=== PATIENT | female | born 1985 | race Caucasian/White ===

== ENCOUNTER 2020-07-17 08:26 | Inpatient (IN) | payer SELFPAY ==
[~2020-07-17] VITALS: Ht 162.6 cm; Wt 67.6 kg
[2020-07-17] MEDS ORDERED: AZITHROMYCIN 500MG/NS 250 ML 250 ML IV ONE (08:34)
[2020-07-17] MEDS ORDERED: CEFTRIAXONE SOD 1 GM/NS 50 ML 50 ML IV ONE (08:45)
[2020-07-17] MEDS ORDERED: ONDANSETRON HCL INJ 2MG/ML 2ML 2 MG/ML VIAL IV ONE (08:51)
[2020-07-17 08:55] LABS: BASOPHILS % 0.3 % (0.0-1.0); EOSINOPHILS % 0.5 % (0.0-6.0); HEMATOCRIT 41.7 % (34.2-44.1); LYMPHOCYTES # (AUTO) 1.6 (1.0-3.2); LYMPHOCYTES % 42.7 % (18.0-39.1); MEAN CORPUSCULAR HEMOGLOBIN 28.5 pg (28-32); MEAN CORPUSCULAR HGB CONC 33.6 g/dL (31-35); MEAN CORPUSCULAR VOLUME 84.8 fL (81-99); MONOCYTES # (AUTO) 0.4 (0.2-0.8); NEUTROPHILS # (AUTO) 1.8 (2.1-6.9); NEUTROPHILS % 46.2 % (38.7-80.0); PLATELET COUNT 202 x10e3/uL (140-360); RED BLOOD COUNT 4.92 x10e6/uL (3.6-5.1); RED CELL DISTRIBUTION WIDTH 12.8 % (11.7-14.4)
[2020-07-17] MEDS ORDERED: REMDESIVIR 100MG/NS 100ML 100 MG in SODIUM CHLORIDE 0.9% 100 ML 100 ML IV SCH (09:00)
--- NOTE | 2020-07-17 09:05 | Emergency Department Note ---
History of Present Illnes History of Present Illness Chief Complaint: COVID PUI History of Present Illness This is a 34 year old female arrived to the ED with complaints of cough, tested + for COVID. 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 Historian: Patient Arrival Mode: Car Onset (how long ago): day(s) Radiation: Reports non-radiation Severity: mild Progression: worsening Chronicity: new Context: Reports recent illness Past Medical/Family History Physician Review I have reviewed the patient's past medical and family history. Any updates have been documented here. Past Medical History Recent Fever: Yes Clinical Suspicion of Infectio: No New/Unexplained Change in Ment: No Past Medical History: None Other Surgery: breast augmentation pinning to right ankle Social History Physically hurt or threatened: No Review of Systems Review of Systems Constitutional: Reports no symptoms EENTM: Reports no symptoms Cardiovascular: Reports no symptoms Respiratory: Reports as per HPI, Reports cough Gastrointestinal: Reports no symptoms Genitourinary: Reports no symptoms Musculoskeletal: Reports no symptoms Integumentary: Reports no symptoms Neurological: Reports as per HPI Psychological: Reports no symptoms Endocrine: Reports no symptoms Hematological/Lymphatic: Reports no symptoms Physical Exam Related Data Allergies: Coded Allergies: No Known Allergies (Unverified , 07/17/20) Triage Vital Signs Vital Signs Date Time Temp Pulse Resp B/P (MAP) Pulse Ox O2 Delivery O2 Flow Rate FiO2 07/17/20 08:32 98.2 98 16 120/87 100 Room Air Vital signs reviewed: Yes Physical Exam CONSTITUTIONAL Constitutional: Present well-developed, Present well-nourished HENT HENT: Present normocephalic, Present atraumatic, Present oropharynx clear/moist, Present nose normal HENT L/R: Present left ext ear normal, Present right ext ear normal EYES Eyes: Reports PERRL, Reports conjunctivae normal NECK Neck: Present ROM normal PULMONARY Pulmonary: Present effort normal, Present breath sounds normal CARDIOVASCULAR Cardiovascular: Present regular rhythm, Present heart sounds normal, Present capillary refill normal, Present normal rate GASTROINTESTINAL Abdominal: Present soft, Present nontender, Present bowel sounds normal GENITOURINARY Genitourinary: Present exam deferred SKIN Skin: Present warm, Present dry MUSCULOSKELETAL Musculoskeletal: Present ROM normal NEUROLOGICAL Neurological: Present alert, Present oriented x 3, Present no gross motor or sensory deficits PSYCHOLOGICAL Psychological: Present mood/affect normal, Present judgement normal Results Laboratory Lab results reviewed: Yes Imaging Imaging results reviewed: Yes Assessment & Plan Medical Decision Making MDM 34-year-old female arrived to the ED with complaints of cough, chest positive for the coronavirus. Patient sent to ED for hospital admission at recommendation of infectious disease doctor. Patient started on Remdesvir, ceftriaxone and Zithromax. Assessment & Plan Final Impression: (1) COVID-19 Depart Disposition: ADMITTED Last Vital Signs Date Time Temp Pulse Resp B/P (MAP) Pulse Ox O2 Delivery O2 Flow Rate FiO2 07/17/20 08:32 98.2 98 16 120/87 100 Room Air Medications in the ED Remdesivir 100 mg/ Sodium Chloride 100 ml @ 100 mls/hr Q24H IV ; Start 07/17/20 at 09:00; Stop 08/16/20 at 08:59 Ceftriaxone Sodium 50 ml @ 100 mls/hr ONCE ONCE IV ; Start 07/17/20 at 08:45; Stop 07/17/20 at 09:14 Azithromycin 250 ml @ 200 mls/hr NOW ONCE IV ; Start 07/17/20 at 08:34; Stop 07/17/20 at 09:48 CLEM ARREDONDO, Jul 17, 2020 09:05
[2020-07-17 09:13] LABS: ALANINE AMINOTRANSFERASE 8 IU/L (0-55); ALBUMIN 4.8 g/dL (3.5-5.0); ALBUMIN/GLOBULIN RATIO 1.5 (0.8-2.0); ALKALINE PHOSPHATASE 66 IU/L (40-150); ANION GAP 16.9 mmol/L (8-16); BLOOD UREA NITROGEN 11 mg/dL (7-26); BUN/CREATININE RATIO 14 (6-25); CARBON DIOXIDE 20 mmol/L (22-29); CHLORIDE 107 mmol/L (98-107); CREATININE, SERUM 0.78 mg/dL (0.57-1.11); EST GLOMERULAR FILTRATION RATE > 60 ML/MIN (60-); GLUCOSE 98 mg/dL (74-118); POTASSIUM 3.9 mmol/L (3.5-5.1); SODIUM 140 mmol/L (136-145)
[2020-07-17] MEDS ORDERED: REMDESIVIR 200MG/NS 100ML 200 MG in SODIUM CHLORIDE 0.9% 100 ML 100 ML IV ONE (09:30)
[2020-07-17] MEDS ORDERED: ONDANSETRON HCL INJ 2MG/ML 2ML 2 MG/ML VIAL IV PRN (09:45)
--- NOTE | 2020-07-17 09:45 | Diagnostic Imaging Report ---
EXAMINATION: CHEST SINGLE (PORTABLE) INDICATION: Cough, shortness of breath COMPARISON: None FINDINGS: LINES/TUBES:None LUNGS:The lungs are well-inflated. No focal consolidation or pulmonary edema. PLEURA:No pleural effusion or pneumothorax. MEDIASTINUM:The cardiomediastinal silhouette appears normal in size and shape. BONES/SOFT TISSUES:No acute osseous injury. ABDOMEN:No free air under the diaphragm. IMPRESSION: No focal pneumonia or pulmonary edema. Signed by: Andre Griffith MD on 07/17/2020 9:41 AM
--- NOTE | 2020-07-17 09:54 | NUR ---
INFECTIOUS DISEASE CONSULT NOTE Dr. Sherley Pratt HPI: This is 34 year old female with a PMH of kidney stones, pyelonephritis, and UTIs who presented to the ED with 1 day of severe SOB. She was diagnosed with COVID on 07/15, first symptoms 07/13. She is my nurse in the clinic. She called me at 4am with a sudden onset of severe SOB. I instructed her to come to the ED ROS: severe SOB, sudden onset, myalgias ALL 14 POINT ROS NEG UNLESS OTHERWISE NOTED PHYSICAL EXAM HEENT: AAOX3 CV: S1, S2, w/o s3, s4 Chest: rhonchi, wheezing ABD: soft, non-tender Ext: moves all, no joint swelling PSYCH: intact, some anxiety LABS: reviewed, pending RADIOLOGY: IMPRESSION: COVID 19 Shortness of breath PLAN: get STAT CXR C02 is 20, get STAT CTA RMSV COVID protocol Sarah Toscano MSN, [employer] MANAGER, AGACNP-BC
[2020-07-17] MEDS ORDERED: LACTATED RINGER'S 1,000 ML INJ ONE (10:00)
[2020-07-17] MEDS ORDERED: SODIUM CHLORIDE 0.9% 100 ML ONE (10:02)
--- NOTE | 2020-07-17 11:02 | History and Physical ---
HISTORY OF PRESENT ILLNESS: This is a 45-year-old, who has history of kidney stone and pyelonephritis, comes in with one-day history of shortness of breath. She was diagnosed with COVID recently. The patient was called this morning with shortness of breath. The patient is being admitted. PAST MEDICAL HISTORY: As above. PAST SURGICAL HISTORY: As above. ALLERGIES: NKA. SOCIAL HISTORY: There is no smoking, drug abuse, or alcohol abuse. FAMILY HISTORY: Unremarkable. LABORATORY DATA: White count 3.79, hemoglobin 14, and hematocrit 41. Sodium 140, potassium 3.9, and creatinine 0.78. Her chest x-ray showed no focal pneumonia or edema. PHYSICAL EXAMINATION: VITAL SIGNS: Stable, currently afebrile. Temperature 98.2 and heart rate 98. She feels she is short of breath even though her saturation is well on room air. She states she is extremely short of breath. GENERAL: She is currently alert and oriented. HEENT: Not icteric. NECK: Supple. CHEST: Crackles bilateral. HEART: S1 and S2. ABDOMEN: Soft. Bowel sounds present. EXTREMITIES: No edema. SKIN: No rash. IMPRESSION: Shortness of breath, concerned about superimposed bacterial pneumonia. Chest x-ray is negative, concerned about pulmonary embolism. The patient will be admitted, started on remdesivir, Rocephin, azithromycin, and dexamethasone as ordered. We will get CTA. We will start her on Lovenox. Oxygen as needed. We will reassess. MD BENNY Winn/LIDIA /[id number]
--- NOTE | 2020-07-17 11:32 | Diagnostic Imaging Report ---
EXAM: CT Chest WITH contrast 07/17/2020 10:30 AM INDICATION: ^r/o PE in COVID patient ^[id number] ^1030 COMPARISON: None TECHNIQUE: Chest was scanned utilizing a multidetector helical scanner from the lung apex through the level of the adrenal glands without administration of IV contrast. Coronal and sagittal reformations were obtained. Pulmonary embolism protocol was performed. IV CONTRAST: 100 mL of Omnipaque 300 COMPLICATIONS: None RADIATION DOSE: Total DLP: 425 mGy*cm Estimated effective dose: (DLP x 0.014 x size factor) mSv CTDIvol has been reviewed. It is below the limits set by the Radiation Protocol Committee (RPC). Dose modulation, iterative reconstruction, and/or weight based adjustment of the mA/kV was utilized to reduce the radiation dose to as low as reasonably achievable. FINDINGS: LINES/ TUBES: None. VESSELS: No pulmonary artery filling defect is identified to the subsegmental pulmonary artery branches. Normal caliber of the pulmonary artery trunk. No evidence of right heart strain. LUNGS AND AIRWAYS: The lungs are unremarkable. Airways are normal. PLEURA: The pleural spaces are clear. HEART AND MEDIASTINUM: The thyroid gland is normal. No mediastinal, hilar or axillary lymphadenopathy. The heart is normal in size. There is no pericardial effusion. UPPER ABDOMEN: Unremarkable. BONES: The visualized bony thorax is within normal limits. SOFT TISSUES: Bilateral breast implants. IMPRESSION: No acute thoracic abnormality. No pulmonary embolus. Clear lungs. Signed by: Aj Sharif MD on 07/17/2020 11:28 AM
[2020-07-17] MEDS ORDERED: ALBUTEROL SULFATE HFA 8GM INHALATION AEROSOL INH PRN (11:45)
[2020-07-17] MEDS ORDERED: LORAZEPAM 1 MG TAB PO PRN (11:45)
[2020-07-17] MEDS: SODIUM CHLORIDE 0.9% 1000ML 1,000 ML IV SCH ×2 (12:00→22:05)
[2020-07-17] MEDS: ZINC SULFATE 50 MG CAP PO SCH (12:00)
[2020-07-17 13:20] VITALS: BP 101/77
[2020-07-17 13:42] VITALS: BP 101/77
[2020-07-17] MEDS ORDERED: ENOXAPARIN INJ 80 MG/0.8 ML SYR SC SCH (17:00)
[2020-07-17] MEDS: ASCORBIC ACID 500 MG TAB PO SCH (17:00)
[2020-07-17] MEDS: ENOXAPARIN 30 MG/0.3 ML SYR SC SCH (17:00)
[2020-07-17] MEDS: FAMOTIDINE 20 MG TAB PO SCH (17:00)
[2020-07-17] MEDS: SUCRALFATE 1 GM TAB PO SCH (17:00)
[2020-07-17 17:29] VITALS: BP 104/64
--- NOTE | 2020-07-17 19:00 | NUR ---
Resumed care of patient. Patient awake and resting in bed, respirations even and unlabored on room air, no s/s of distress at this time. Bed locked and in lowest position, side rails upx2, call light placed within reach. Patient instructed to call for assistance if needed, verbalized understanding. All safety measures in place.
[2020-07-17 19:23] LABS: ALANINE AMINOTRANSFERASE 7 IU/L (0-55); ALBUMIN 4.4 g/dL (3.5-5.0); ALBUMIN/GLOBULIN RATIO 1.6 (0.8-2.0); ALKALINE PHOSPHATASE 57 IU/L (40-150); ANION GAP 12.7 mmol/L (8-16); BLOOD UREA NITROGEN 12 mg/dL (7-26); BUN/CREATININE RATIO 15 (6-25); CALCIUM 8.1 mg/dL (8.4-10.2); CARBON DIOXIDE 23 mmol/L (22-29); CHLORIDE 107 mmol/L (98-107); CREATININE, SERUM 0.82 mg/dL (0.57-1.11); EST GLOMERULAR FILTRATION RATE > 60 ML/MIN (60-); GLUCOSE 87 mg/dL (74-118); POTASSIUM 3.7 mmol/L (3.5-5.1); SODIUM 139 mmol/L (136-145)
[2020-07-17] MEDS ORDERED: ACETAMINOPHEN 325 MG TAB PO PRN (19:45)
--- NOTE | 2020-07-17 19:54 | NUR ---
Patient transferred to room 182.
[2020-07-17 20:00] VITALS: BP 120/54
[2020-07-17 20:05] VITALS: BP 104/64
[2020-07-17 20:53] VITALS: BP 120/54
[2020-07-18] VITALS (8 sets, daily range): BP systolic 97–118; BP diastolic 72–85
[2020-07-18 04:54] LABS: BASOPHILS % 0.3 % (0.0-1.0); EOSINOPHILS % 0.8 % (0.0-6.0); HEMATOCRIT 34.7 % (34.2-44.1); HEMOGLOBIN 11.5 g/dL (12.0-16.0); LYMPHOCYTES # (AUTO) 2.2 (1.0-3.2); LYMPHOCYTES % 59.5 % (18.0-39.1); MEAN CORPUSCULAR HEMOGLOBIN 28.6 pg (28-32); MEAN CORPUSCULAR HGB CONC 33.1 g/dL (31-35); MEAN CORPUSCULAR VOLUME 86.3 fL (81-99); MONOCYTES # (AUTO) 0.3 (0.2-0.8); MONOCYTES % 9.3 % (4.4-11.3); NEUTROPHILS # (AUTO) 1.1 (2.1-6.9); NEUTROPHILS % 29.8 % (38.7-80.0); PLATELET COUNT 167 x10e3/uL (140-360); RED BLOOD COUNT 4.02 x10e6/uL (3.6-5.1); RED CELL DISTRIBUTION WIDTH 12.8 % (11.7-14.4)
[2020-07-18 05:12] LABS: ALBUMIN 3.8 g/dL (3.5-5.0); ALBUMIN/GLOBULIN RATIO 1.7 (0.8-2.0); ALKALINE PHOSPHATASE 49 IU/L (40-150); ANION GAP 10.8 mmol/L (8-16); BLOOD UREA NITROGEN 11 mg/dL (7-26); BUN/CREATININE RATIO 15 (6-25); CALCIUM 7.4 mg/dL (8.4-10.2); CARBON DIOXIDE 22 mmol/L (22-29); CHLORIDE 111 mmol/L (98-107); CREATININE, SERUM 0.72 mg/dL (0.57-1.11); EST GLOMERULAR FILTRATION RATE > 60 ML/MIN (60-); GLUCOSE 80 mg/dL (74-118); POTASSIUM 3.8 mmol/L (3.5-5.1); SODIUM 140 mmol/L (136-145)
[2020-07-18 05:16] LABS: ALANINE AMINOTRANSFERASE < 6 IU/L (0-55)
[2020-07-18] MEDS: FAMOTIDINE 20 MG TAB PO SCH ×2 (08:02→16:00)
[2020-07-18] MEDS: SODIUM CHLORIDE 0.9% 1000ML 1,000 ML IV SCH ×2 (08:02→22:09)
[2020-07-18] MEDS: SUCRALFATE 1 GM TAB PO SCH ×3 (08:02→16:00)
[2020-07-18] MEDS: CHOLECALCIFEROL 400 UNIT TAB PO SCH (08:02)
[2020-07-18] MEDS: ASCORBIC ACID 500 MG TAB PO SCH ×2 (08:02→16:00)
[2020-07-18] MEDS: ENOXAPARIN 30 MG/0.3 ML SYR SC SCH ×2 (08:02→16:00)
[2020-07-18] MEDS: ZINC SULFATE 50 MG CAP PO SCH (08:02)
[2020-07-18] MEDS ORDERED: AZITHROMYCIN 500MG/NS 250 ML 250 ML IV SCH (09:00)
[2020-07-18] MEDS ORDERED: CEFTRIAXONE SOD 2 GM/NS 100 ML 100 ML IV SCH (09:00)
[2020-07-18 10:35] LABS: MAGNESIUM 1.9 MG/DL (1.3-2.1); PHOSPHORUS 1.6 MG/DL (2.3-4.7)
--- NOTE | 2020-07-18 11:59 | NUR ---
infectious disease progress note Patient complaining of nausea vomiting diarrhea stronger no shortness of breath Overall little better Her vitals stable afebrile HEENT she is not pale or icteric neck supple chest clear bilateral heart S1-S2 abdomen soft but of present extremities no edema skin no rash covid 19 gastroenteritis Dehydration Nausea vomiting We will discontinue antibiotic continue IV fluids continue with Pepcid to continue with Zofran continue supportive care recheck in the morning continue with RMZV
[2020-07-18] MEDS: REMDESIVIR 100MG/NS 100ML 100 MG in SODIUM CHLORIDE 0.9% 100 ML 100 ML IV SCH (12:12)
--- NOTE | 2020-07-18 19:02 | NUR ---
Report given to oncoming nurse of patient's status. NO s/s of acute distress noted. Side rails upx3, call light within reach.
--- NOTE | 2020-07-18 22:11 | NUR ---
STOPPED IV FLUIDS PER MD ORDER.
[2020-07-19 04:00] VITALS: BP_SYST 108; BP_SYST 121; BP_DIAS 76; BP_DIAS 80
--- NOTE | 2020-07-19 04:22 | NUR ---
CENTRAL LINE CARE PROVIDED. DAILY CHG BATH GIVEN. SALINE FLUSH. ALCOHOL CAP APPLIED.
[2020-07-19 04:39] LABS: HEMATOCRIT 36.6 % (34.2-44.1); HEMOGLOBIN 12.1 g/dL (12.0-16.0); MEAN CORPUSCULAR HEMOGLOBIN 28.5 pg (28-32); MEAN CORPUSCULAR HGB CONC 33.1 g/dL (31-35); MEAN CORPUSCULAR VOLUME 86.1 fL (81-99); PLATELET COUNT 132 x10e3/uL (140-360); RED BLOOD COUNT 4.25 x10e6/uL (3.6-5.1); RED CELL DISTRIBUTION WIDTH 12.7 % (11.7-14.4)
[2020-07-19 05:05] LABS: ALANINE AMINOTRANSFERASE 8 IU/L (0-55); ALBUMIN 4.1 g/dL (3.5-5.0); ALBUMIN/GLOBULIN RATIO 1.6 (0.8-2.0); ALKALINE PHOSPHATASE 52 IU/L (40-150); ANION GAP 12.1 mmol/L (8-16); BLOOD UREA NITROGEN 8 mg/dL (7-26); BUN/CREATININE RATIO 11 (6-25); CALCIUM 7.9 mg/dL (8.4-10.2); CARBON DIOXIDE 24 mmol/L (22-29); CHLORIDE 110 mmol/L (98-107); CREATININE, SERUM 0.71 mg/dL (0.57-1.11); EST GLOMERULAR FILTRATION RATE > 60 ML/MIN (60-); GLUCOSE 79 mg/dL (74-118); POTASSIUM 4.1 mmol/L (3.5-5.1); SODIUM 142 mmol/L (136-145)
--- NOTE | 2020-07-19 07:00 | NUR ---
ASSUMED CARE. AAOX3. ACYANOTIC. SITTING UPRIGHT IN BED ON ROOM AIR. NO DISTRESS NOTED. CALL LIGHT IN REACH. SIDE RAILS UP X2. BED LOW AND LOCKED.
--- NOTE | 2020-07-19 07:01 | NUR ---
REPORT GIVEN TO DAYSHIFT NURSE. ALERT AND ORIENTED. RESTING IN BED. NO SIGNS IV INFILTRATION. BED LOCKED AND IN LOW POSITION. CALL LIGHT WITHIN REACH.
[2020-07-19 07:07] LABS: EOSINOPHILS % (MANUAL) 2 % (0-7); LYMPHOCYTES % (MANUAL) 46 % (19-48); MONOCYTES % (MANUAL) 7 % (3.4-9.0); NEUTROPHILS % (MANUAL) 41 % (40-74); NUCLEATED RED BLOOD CELLS 1; PLATELET ESTIMATE SLIGHTLY DECREASED; PLATELET MORPHOLOGY COMMENT NORMAL; RBC MORPHOLOGY COMMENT NORMAL
[2020-07-19 07:46] VITALS: BP 105/78
[2020-07-19 08:00] VITALS: BP 105/78
[2020-07-19] MEDS: SUCRALFATE 1 GM TAB PO SCH ×2 (08:27→11:56)
[2020-07-19] MEDS: FAMOTIDINE 20 MG TAB PO SCH (08:28)
[2020-07-19] MEDS: ASCORBIC ACID 500 MG TAB PO SCH (08:28)
[2020-07-19] MEDS: ENOXAPARIN 30 MG/0.3 ML SYR SC SCH (08:28)
[2020-07-19] MEDS: CHOLECALCIFEROL 400 UNIT TAB PO SCH (08:28)
[2020-07-19] MEDS: ZINC SULFATE 50 MG CAP PO SCH (08:28)
--- NOTE | 2020-07-19 08:37 | Diagnostic Imaging Report ---
TECHNIQUE: Frontal view of the chest. INDICATION: ^SOB ^[id number] ^0515 ^Y COMPARISON: CT dated 07/17/2020 and x-ray dated 07/17/2020 DISCUSSION: Limited evaluation due to portable technique. Lines and hardware: Overlying EKG leads are noted. Metallic piercings are noted. Heart and mediastinum: Stable. Lungs and pleura: No focal airspace consolidation. No pleural effusion. No pneumothorax. Soft tissues and bones: No acute abnormality. IMPRESSION: Stable exam without acute intrathoracic process. Signed by: Roscoe Harris MD on 07/19/2020 8:33 AM
[2020-07-19] MEDS: REMDESIVIR 100MG/NS 100ML 100 MG in SODIUM CHLORIDE 0.9% 100 ML 100 ML IV SCH (09:06)
[2020-07-19 11:38] VITALS: BP 106/75
== END 2020-07-19 13:35 | disposition home or self-care (01) | DRG 177 ==
LOC: ER 08:30 → ERHOLD 08:34 → IMCU 11:18
PROVIDERS: ADMIT Internal Medicine Infectious Disease; ATTEND Internal Medicine Infectious Disease
PROC: 8E0ZXY6 Isolation (ICD-10-PCS; 2020-07-17)
PROC: 02HV33Z Insertion of Infusion Device into Superior Vena Cava, Percutaneous Approach (ICD-10-PCS; 2020-07-17)
PROC: XW043E5 Introduction of Remdesivir Anti-infective into Central Vein, Percutaneous Approach, New Technology Group 5 (ICD-10-PCS; principal; 2020-07-18)
DX: U07.1 COVID-19 (principal); J15.9 Unspecified bacterial pneumonia; J12.89 Other viral pneumonia
CPT/HCPCS: 36415; 71045; 71260; 80053; 83735; 84100; 85007; 85025; 85027; 87040; 99284; J0456; J0696; J1650; J2405; J7030; J7050; U0002